=== PATIENT | female | born 1960 | race Caucasian/White ===

== ENCOUNTER 2024-12-03 11:48 | Outpatient (CLI) | payer MEDICARE, MEDICAID, SELFPAY ==
--- NOTE | 2024-12-03 11:00 | DI.RAD_ITS ---
Exam(s) XR STANDING ALIGNMENT EXAM: XR STANDING ALIGNMENT CLINICAL HISTORY: LEFT KNEE PAIN. TECHNIQUE: 2D digital imaging was performed. Standing AP views were performed from the pelvis through the ankles. COMPARISON: DX XR KNEE LT MIN 4V* from 04/16/2021 DX XR KNEE 4V LT* from 05/13/2022 FINDINGS: BONES: No acute fracture is present. No bony destructive lesion is seen. Leg length discrepancy: Mild overall leg length discrepancy 5 millimeters, with the right femoral head projecting superior to the left. JOINTS: Knees: There are end-stage degenerative changes of the left knee. There is severe joint space narrowing and prominent periarticular spurring. There are bony densities medial to the medial malleolus. There is significant lateral subluxation of the tibia with respect to the distal femur and significant varus angulation. There is flattening of the tibial spines. The right knee shows moderate to severe narrowing of the medial femoral tibial joint space, periarticular spurring and mild varus angulation. Ankles: Tibiotalar fusion hardware noted on the right. The left ankle joint space is maintained. The hip joints are suboptimally evaluated due to under penetration due to patient body habitus. There may be mild bilateral hip joint space narrowing. SOFT TISSUE: Normal. IMPRESSION: End-stage degenerative changes of the left knee. Severe degenerative changes of the right knee. Mild leg length discrepancy. DATA REPOSITORY: RADIATION DOSE DELIVERED:
== END 2024-12-03 11:49 | disposition home or self-care (01) ==
LOC: DIORS 11:49
PROVIDERS: Visit Provider Student in an Organized Health Care Education/Training Program
DX: M25.562 Pain in left knee (principal); M17.12 Unilateral primary osteoarthritis, left knee; M21.162 Varus deformity, not elsewhere classified, left knee
CPT/HCPCS: 99204; 77073

== ENCOUNTER 2025-02-21 05:16 | Outpatient (CLI) | payer MEDICARE, MEDICAID, SELFPAY ==
[2025-02-21 10:27] LABS: HCT 45.0 % (36.0-46.0); HGB 14.4 g/dL (11.2-15.7); MCH 28.2 pg (27.0-33.0); MCHC 32.0 % (32.0-36.0); MCV 88 fL (80-95); MPV 11.7 fL (8.0-11.0); Platelet Count 180 10^3/uL (130-400); RBC 5.10 10^6/uL (3.93-5.22); RDW 12.9 % (11.7-14.6); RDW-SD 41.9 fL; WBC 4.72 10^3/uL (4.4-10.8)
[2025-02-21 10:56] LABS: Anion Gap 6.0 mmol/L (3-11); BUN 17 mg/dL (7-18); CO2 31.0 mmol/L (21.0-32.0); Calcium 9.3 mg/dL (8.5-10.1); Chloride 103 mmol/L (98-107); Estimated GFR 97.12 (mL/min/1.73m2); Glucose 100 mg/dL (74-106); Potassium 4.0 mmol/L (3.5-5.1); Sodium 140 mmol/L (136-145)
== END 2025-02-21 05:17 | disposition home or self-care (01) ==
PROVIDERS: PCP Nurse Practitioner Family; Visit Provider Student in an Organized Health Care Education/Training Program
DX: Z01.818 Encounter for other preprocedural examination (principal); M17.12 Unilateral primary osteoarthritis, left knee
CPT/HCPCS: 36415; 80048; 85027; 73700

== ENCOUNTER 2025-02-21 05:28 | Outpatient (CLI) | payer MEDICARE, MEDICAID, SELFPAY ==
--- NOTE | 2025-02-21 07:15 | DI.CT_ITS ---
Exam(s) CT LOWER EXTREMITY LT WO EXAM: CT LOWER EXTREMITY LT WO CLINICAL HISTORY: PAIN,arthritis lt knee,acquired varus deformity,surgical planning. TECHNIQUE: Imaging Protocol: Axial computed tomography images with coronal and sagittal reformatted images were created and reviewed. CONTRAST MATERIAL: Noncontrast - COMPARISON: DX XR KNEE 4V LT* from 05/13/2022 CR XR STANDING ALIGNMENT from 12/03/2024 FINDINGS: There are severe degenerative changes of the femoral tibial joints. There is lateral subluxation of the tibia with respect to the distal femur. There is prominent periarticular spurring. There are bony fragments noted at the posterior medial aspects of the the medial tibia. There is a there are multiple subchondral cysts as well as sclerosis. There is significant varus angulation. There is flattening of the tibial spines and femoral intercondylar notch. The patellofemoral joint also shows severe narrowing and periarticular spurring. A bilobed Bertrand cyst is present which contains several loose bodies. IMPRESSION: Severe degenerative changes of the medial femoral tibial joint with significant deformity of the distal femur and medial tibial plateau but adjacent bony fragments. RADIATION DOSE DELIVERED: 148.05mGy.cm Total DLP DATA REPOSITORY: All CT scans at this facility are submitted to the National Radiology Data Registry (NRDR) Dose Index Registry (DIR) with the [employer] (A[employer]). RADIATION OPTIMIZATION: All CT scans at this facility use at least one of these dose optimization techniques: automated exposure control; mA and/or kV adjustment per patient size (includes targeted exams where dose is matched to clinical indication); or iterative reconstruction.
== END 2025-02-21 05:48 ==
LOC: DI 05:28
PROVIDERS: PCP Nurse Practitioner Family; Visit Provider Student in an Organized Health Care Education/Training Program
DX: M21.169 Varus deformity, not elsewhere classified, unspecified knee (principal); M17.12 Unilateral primary osteoarthritis, left knee
CPT/HCPCS: 73700

== ENCOUNTER 2025-02-26 07:10 | Day surgery (SDC) | payer MEDICARE, MEDICAID, SELFPAY ==
[2025-02-26] VITALS (19 sets, daily range): BP systolic 100–160; BP diastolic 45–88; PULSE 57–78; RESP 9–20; TEMP 36–36.8; O2SAT 96–100; BMI 41.2
--- NOTE | 2025-02-26 07:58 | W.ANESPRE ---
General Info Date of Service Date Performed: 02/26/25 Height: 5 ft 2 in Weight: 102.2 kg Body Mass Index (BMI): 41.2 Surgical Procedure: Operation Date: 02/26/25 09:25 Proposed Procedure Side Surgeon p Knee Total Arthroplasty w/OrthAlign, FB Tibia Revision Left Jono Woods MD Actual Procedure Side Surgeon p Knee Total Arthroplasty w/OrthAlign, FB Tibia Revision Left Jono Woods MD Pre-Op Diagnosis Post-Op Diagnosis Arthritis of left knee Meds Allergies and Home Medications Allergies Allergy/AdvReac Type Severity Reaction Status Date / Time Penicillins Allergy Unknown Unknown Verified 02/26/25 07:35 Home Medication ?Medication ?Instructions ?Recorded tramadol 50 mg tablet 50 mg PO TID PRN 12/03/24 ZYFLAMEND PO DAILY 02/21/25 cholecalciferol (vitamin D3) 125 5,000 unit PO DAILY 02/21/25 mcg (5,000 unit) tablet (Vitamin D3) coQ10 (ubiquinol) 100 mg capsule 100 mg PO DAILY 02/21/25 evening primrose oil 500 mg capsule 500 mg PO DAILY 02/21/25 ketoconazole 2 % topical cream 1 applic topical DAILY PRN 02/21/25 multivitamin with minerals 1 tab PO DAILY 02/21/25 (Hair,Skin and Nails tablet) vitamin E acetate 134 mg (200 134 mg PO DAILY 02/21/25 unit) capsule Current Visit Medications: Current Medications Generic Name Dose Route Start Last Admin Trade Name Freq PRN Reason Stop Dose Admin Acetaminophen 1,000 mg 02/26/25 06:00 Acetaminophen 500 Mg Tab PO 02/26/25 23:59 PREOP [facility] Acetaminophen 1,000 mg 02/26/25 08:30 Acetaminophen 500 Mg Tab PO 03/28/25 08:29 TID [facility] Aspirin 81 mg 02/26/25 08:30 Aspirin E.C. 81 Mg Tabec PO 03/28/25 08:29 BID [facility] Celecoxib 400 mg 02/26/25 06:00 Celecoxib 200 Mg Cap PO 02/26/25 23:59 PREOP [facility]ID Celecoxib 200 mg 02/26/25 08:30 Celecoxib 200 Mg Cap PO 03/28/25 08:29 BID [facility] Dexamethasone 4 mg 02/26/25 08:30 Dexamethasone 4 Mg Tab PO 02/27/25 08:31 DAILY [facility] Docusate Sodium 100 mg 02/26/25 07:08 Docusate Sodium 100 Mg Cap PO 03/28/25 07:07 BID PRN PRN Constipation Gabapentin 300 mg 02/26/25 06:00 Gabapentin 300 Mg Cap PO 02/26/25 23:59 PREOP DAVID Gabapentin 300 mg 02/26/25 20:00 Gabapentin 300 Mg Cap PO 03/28/25 19:59 HS DAVID Hydromorphone HCl 0.5 mg 02/26/25 07:08 Hydromorphone 2 Mg/Ml Syr IVP 03/28/25 07:07 Q2H PRN PRN Ringer's Solution 1,000 mls @ 80 mls/hr 02/26/25 06:00 IV 02/26/25 23:59 INFUSION DAVID Cefazolin Sodium/Dextrose 2 gm in 50 mls @ 100 mls/hr 02/26/25 06:00 Ancef Duplex IVPB 02/26/25 23:59 PREOP DAVID Tranexamic Acid/Sodium Chloride 1,000 mg in 100 mls @ 600 mls/hr 02/26/25 06:00 IVPB 02/26/25 23:59 PREOP DAVID Cefazolin Sodium/Dextrose 1 gm in 50 mls @ 100 mls/hr 02/26/25 08:00 Ancef Duplex IVPB 03/28/25 07:59 Q8H DAVID IV Miscellaneous Supplies 1 each 02/26/25 06:00 Iv Access IV 02/26/25 23:59 DIRECTED DAVID Ondansetron HCl 4 mg 02/26/25 07:08 Ondansetron 4 Mg/2 Ml Vial IVP 03/28/25 07:07 Q6H PRN PRN Nausea Oxycodone HCl 0 mg 02/26/25 07:08 Oxycodone 5 Mg Tab PO 03/28/25 07:07 Q3H PRN PRN Pain Pantoprazole Sodium 40 mg 02/26/25 07:30 Pantoprazole 40 Mg Tabcr PO 03/28/25 07:29 DAILY@0730 DAVID Polyethylene Glycol 17 gm 02/26/25 07:08 Polyethylene Glycol 3350 17 Gm Packet PO 03/28/25 07:07 BID PRN PRN Constipation Sodium Chloride 0 ml 02/26/25 06:00 Normal Saline Flush 10 Ml Syr IV 02/26/25 23:59 PRN PRN Sodium Chloride 0 ml 02/26/25 06:00 Normal Saline 10 Ml Vial IJ 02/26/25 23:59 DIRECTED PRN Sterile Water 0 ml 02/26/25 06:00 Water,Injection,Sterile 10 Ml Vial IJ 02/26/25 23:59 DIRECTED PRN Tranexamic Acid 1,300 mg 02/26/25 07:08 Tranexamic Acid 650 Mg Tab PO 03/28/25 07:07 ONCE PRN postoperative PFSH Active Problems Active Problems: Problem Status Onset Code Acquired varus deformity of knee Acute M21.169 Arthritis of left knee Acute M17.12 Obesity Chronic E66.9 Thyroid nodule Acute E04.1 Heart murmur Acute R01.1 ANDREW (obstructive sleep apnea) Chronic G47.33 Surgical History Surgical History Hx of colonoscopy History of ankle fusion (02/09/22) non-union (Dr. Olguin) History of total shoulder replacement Dr. Colin Tobacco Smoking/Tobacco Use Status: Never Passive smoking exposure: Yes Alcohol Alcohol Intake: former Substance Use Substance use: Daily Substance use type: marijuana Details: Last used Marijuana on 02/24/25, she took a small hit per patient. Vital Signs and Lab Results Vital Signs Most Recent Vital Signs in EMR: Most Recent Vital Signs Temp Pulse Resp BP Pulse Ox 36.2 C L 73 16 160/80 H 99 02/26/25 07:37 02/26/25 07:37 02/26/25 07:37 02/26/25 07:37 02/26/25 07:37 Lab Results Complete Blood Count: WBC, (4.4-10.8) 4.72 10^3/uL 02/21/25, 10:00 RBC, (3.93-5.22) 5.10 10^6/uL 02/21/25, 10:00 Hgb, (11.2-15.7) 14.4 g/dL 02/21/25, 10:00 Hct, (36.0-46.0) 45.0 % 02/21/25, 10:00 Plt Count, (130-400) 180 10^3/uL 02/21/25, 10:00 Complete Metabolic Panel: Sodium, (136-145) 140 mmol/L 02/21/25, 10:00 Potassium, (3.5-5.1) 4.0 mmol/L 02/21/25, 10:00 Chloride, (98-107) 103 mmol/L 02/21/25, 10:00 Carbon Dioxide, (21.0-32.0) 31.0 mmol/L 02/21/25, 10:00 BUN, (7-18) 17 mg/dL 02/21/25, 10:00 Creatinine, (0.55-1.02) 0.7 mg/dL 02/21/25, 10:00 Est GFR (CKD-EPI 2020), (mL/min/1.73m2) 97.12 02/21/25, 10:00 Calcium, (8.5-10.1) 9.3 mg/dL 02/21/25, 10:00 Glucose, (74-106) 100 mg/dL 02/21/25, 10:00 Anesthesia Assessment and Plan Anesthesia History Personal History: No History of Anesthesia Complications Family History: No Family History of Anesthesia Complications Exercise Tolerance Exercise Tolerance: Metabolic Equivalents>4 Cardiac & Pulmonary Exam Cardiac Exam: Heart Murmur Present Pulmonary Exam: Clear Bilateral Breath Sounds Implantable Cardiac Device Does patient have a Pacemaker or an ICD?: No Airway Exam Known Difficult Airway: No Mallampati Class: 2 Mouth Opening: Normal (> 3cm) Thyromental Distance: Greater than 3 cm Neck Range of Motion: Full ROM Neck Circumference: Normal Teeth Condition: Normal Dentition ASA Classification ASA Score: ASA 3 Emergency Case?: No NPO Status NPO Status: NPO Clears >2 hours, Solids >8 hours Anesthesia Plan Resuscitation Status: Full Code Anesthesia Technique: Spinal Anesthesia Airway Planned: Natural Airway Pain Management: Surgeon and patient request nerve block Monitors Used: Standard Monitors
[2025-02-26] MEDS: Lactated Ringers 1,000 ML 80 ML IV (08:03)
[2025-02-26] MEDS: Gabapentin 300 MG CAP PO (08:03)
[2025-02-26] MEDS: Acetaminophen 500 MG TAB 1000 MG PO ×2 (08:04→15:00)
[2025-02-26] MEDS: Celecoxib 200 MG CAP 400 MG PO (08:04)
[2025-02-26] MEDS: ceFAZolin 2 GM/50 ML BAG IVPB (09:01)
--- NOTE | 2025-02-26 09:09 | W.PM.OP ---
Operative Note Operative Note PRE-OP DIAGNOSIS: Left Knee Arthritis with Significant Tibia Varus Deformity POST-OP DIAGNOSIS: same PROCEDURE: Left Total Knee Arthroplasty with Intraoperative Navigation (increased complexity with significant tibia varus deformity) SURGEON: Jono Woods PARTS CASTING MACHINE OPERATOR: Lexy Pedraza ANESTHESIA TYPE: Spinal Refer to Anesthesia Record ESTIMATED BLOOD LOSS: 150 PATHOLOGY: none sent COMPLICATIONS: None Patient was transported to: PACU Patient's condition: stable Implants: 1. Depuy Attune Cemented Cruciate Retaining Femoral Component, Size 6 2. Depuy Attune Cemented, Revision Fixed Bearing Tibial Component, Size 4 with [id number] Cemented Stem 3. Depuy Attune 6x10 CR, FB Poly 4. Depuy Attune Patellar Component, Size 38 Indications: I have seen Diana in clinic for symptoms of knee arthritis, confirmed with radiographic findings. She has exhausted nonoperative methods and was having significant limitations in daily function and desired better function and less pain. I discussed the technical details of a knee replacement. I explained the risks of the procedure to include, but not limited to, bleeding, infection, pain, stiffness, fracture, damage to nerves and vessels, damage to muscles and tendons, loosening, need for repeat procedure, blood clot and cardiopulmonary demise. I was honest with Diana that this case has increased complexity given the severity of her varus deformity and the deformity of the medial tibia. CT scan was utilized to better understand the deformity and the loose fragments. All of her questions were answered. Diana elected to proceed. Findings: There was significant signs of arthritis throughout the knee with complete loss of cartilage throughout all 3 compartments, large subchondral cyst, and large osteophytes as well as loose bony fragments, particular posteriorly. Procedure Description: Diana was greeted in the preoperative holding area where the correct side was identified and marked. The consent was reviewed with the patient and signed. The history and physical was updated. All questions were answered. Preoperative medications were administered: Acetaminophen 1000mg, Celebrex 400mg, Gabapentin 300mg, and Oxycontin 10mg. An adductor canal block was then administered by the anesthesia team in the DSU. Diana was taken back to the operating room. A spinal anesthestic was then administered. The patient was placed into the supine position on the operating room table. A nonsterile tourniquet was placed high onto the leg but only used for cementing. Posts were placed for positioning during the procedure. All bony prominences were well padded. Prophylactic antibiotics in the form of Cefazolin were administered. 1g of Tranxemic Acid was given intravenously within 30 minutes of incision. The left leg was then prepped with Chloraprep and draped in a standard fashion with impervious stockinette and extremity drape with Iodine impregnated skin protection. A timeout to confirm correct identity, side and site, procedure, allergies, anesthesia, and medical concerns was performed. With the knee in some flexion, a midline incision was made overlying the knee. Full thickness skin flaps were raised once the extensor mechanism was encountered. These were raised medially and laterally. Any bleeding was controlled with electrocautery. Once the extensor mechanism was fully exposed, a medial parapatellar arthrotomy was performed in a flexed position. All bleeding from the arthrotomy and the geniculate arteries was coagulated. A medial subperiosteal peel was performed with electrocautery to the midcoronal plane. Due to the significant varus deformity the entire medial tibial plateau was exposed. The fat pad was removed while keeping the patellar tendon protected. The anterior distal femur synovium was removed for later visualization. The ACL and PCL were resected and the anterior horn of the lateral meniscus was transected. The knee was then flexed with the patella everted. Large osteophytes from the tibia were removed. Large osteophytes from the femur were removed. There is extensive synovitis as well which was also resected. A single starting pin was then placed 1cm anterior to the PCL insertion and the notch in the direction of the femoral head. The OrthoAlign device was applied over the pin. It was oriented to be in line with the epicondylar axis and the trochlear groove. It was then pinned into place. The navigation computer was then turned on and calibrated. The distal femur cut was set at 0.5 degrees varus and 3.5 degrees flexion. The distal femur cutting guide then was positioned for a 8mm cut due to the significant arthritis and loss of cartilage throughout medial and lateral femur. The distal femur was cut with an oscillating saw while protecting the soft tissues. The tibia was then addressed. The OrthoAlign device was placed over the tibial tubercle and medial tibia and secured into position. Once again, OrthoAlign was calibrated and then set for a 2.5 degrees varus cut and 6 degrees of posterior slope. With this locked into position, the cut thickness stylus was used to assess cut thickness. The medial side, most involved side, was set for a 0mm cut off of the far posterior medial aspect of the medial tibia. This was then held in position and pinned into place with 2 additional pins and a cross pin for stability. The medial and lateral collateral ligaments were protected and the cut was performed. I then further dissected the medial aspect of the knee removing multiple loose bodies in the medial soft tissues and osteophytes around the posterior corner of the medial tibia. A large free posterior medial tibial fragment was encountered which was seen previously on the CT scan. Utilizing a [place] elevator and osteotomes I Corail this off of the posterior tibia and released capsular and ligamentous attachments. Slowly this piece was removed from the posterior aspect of the knee, both in flexion and extension. It was peeled off the MCL and the posterior capsular attachments until was fully free. A gap assessment tool was placed and showed that the gap was appropriate with minimal asymmetry. The guide and OrthoAlign was removed. The Orthoalign gap balancing device was then placed in extension. This was used to ensure that the ligaments were properly balanced with up to 2 to 3 mm laxity laterally compared medially. The extension gap was measured as 22mm. The knee was then brought into 90 degrees of flexion and the ligament electromedical service engineer was once again placed. Under the same amount of force the flexion gap was measured. The Attune specific jig was placed and the flexion gap was made to match the extension gap. The distal femur was then sized. The anterior stylus was placed onto the lateral ridge of the anterior femur. This indicated a size 6 femur. The 4-in-1 cutting guide was the placed. The posterior medial femur cut was evaluated and appeared of good thickness. The spacer block was inserted underneath the cutting guide and stability was confirmed in 90 degrees of flexion. An belen wing was used to confirm appropriate position of the anterior cut to avoid notching. This cutting guide was ensured to be flush on the cut surface and then pinned into place with headed pins. While protecting the soft tissues, quad tendon, and collateral ligaments, the anterior and posterior cuts were performed with a saw. The central two pins were removed and the posterior and anterior chamfers were cut next. The notch-cutting guide was placed. This was pinned to lateralize the femoral component as much as possible while keeping it flush on the cut surface. This was then pinned into position. A small oscillating saw was used to make the notch cut. A rasp smoothed the cut surfaces. A trial femoral component was then inserted, impacted down to the cut surfaces, and the lug holes were drilled. A provisional trial tibial component was placed and the knee was brought through range of motion. The polyethylene was trialed until there was good flexion and extension with excellent stability to the medial and lateral collaterals. The patella was tracking without thumbs. The tibial cut surface was fully exposed. The medial and lateral menisci were removed. The tibia was then sized as a 4. The tibia had been previously marked during trialing to correspond to the center of the tibial component to help with rotation. The trial was aligned to this addie, approximately rotated to the medial 1/3rd of the tibial tubercle. The trial was pinned into place. The revision tibial tray was then prepped by reaming for a 14 mm stem as well as a proximal opening reamer. The keel was also punched. The knee was then brought into extension and the patella was measured as 26mm. Using the patellar clamp and cut guide, this was resected to a flat surface with at least 13mm of thickness remaining. The size 38mm patella fit the best. This was oriented and then clamped into position. The lugs were drilled. The trial components were removed. The final components, except for the polyethylene were opened on the back table. The periosteal and capsular tissues, especially posteriorly, around the knee were then systematically injected with a periarticular cocktail consisting of 200mg of Ropivacaine, 0.5mg of Epinephrine, and 30mg of Ketorolac, diluted to 100cc. The knee was thoroughly irrigated with a pulse lavage and dried. On the back table, with the implants opened, the cement was mixed. 2 batches of medium viscosity cement were prepared with vacuum assistance. After the cement was ready a small amount was placed on to the back side of the tibial component at the keel. A small amount was placed onto the posterior flange of the femur. Cement was manual pressurized and impregnated into the cut surface of the tibia. The tibial component was then inserted into the cut surface and impacted into position. Excess cement was removed and the component was reimpacted. Again, excess cement was removed and our attention was then turned to the femur. The femoral cut surface was once again dried and cement was manually impacted into the cut surface. The femoral component was lined with the lug holes and impacted. Excess cement was removed. It was ensured to be down against the cut surface. The trial polyethylene was then inserted and the leg was brought out into full extension for the duration of the cement curing process, approximately 18min. Cement was lastly manually impacted into the cut surface of the patella and the patellar button was clamped into position and held. During this process attention was turned to the gutters of the knee and for all interfaces for any excess cement. The knee was then thoroughly irrigated with Surgiphor Betadine solution. It was allowed to sit in the knee for 3 minutes before being irrigated out with saline. After the cement had finally cured, approximately 18min, the clamp was removed from the patella and the knee was taken through range of motion. A size 10mm polyethylene component provided the best range of motion and stability with less than 2mm gapping with medial and lateral stress and full extension without significant hyperextension. The patella was tracking with a no-thumbs technique. The trial poly was removed and once again the knee was checked for any loose, excess, or errant cement. The poly component was then inserted into position after cleaning and drying the tibial tray. The capsule was then reapproximated with a No. 1 Vicryl at multiple locations. The capsule was finally closed with a No. 2 Stratafix, barbed suture. The tourniquet was then released and the arthrotomy appeared watertight without significant bleeding. The second dosing of 1g TXA was started. Deep tissues were then reapproximated with 0 Vicryl and 2-0 Vicryl. The skin was closed with a running 3-0 Monocryl in a subcuticular fashion. This was reinforced with skin glue. A Mepilex silver dressing was applied along with a [id number] GASTON wrap. A CryoCuff was applied. Diana was transferred to the hospital bed without difficulty an suffering no apparent complication. She has a good prognosis. Physical therapy will start today and without restrictions, weight-bearing as tolerated. Aspirin 81mg BID will be used for DVT prophylaxis. Date of Procedure: 02/26/25
[2025-02-26] MEDS: TRANEXAMIC ACID/SOD. CHL. 1,000 MG/100 ML BAG 600 MG IVPB (09:15)
[2025-02-26] MEDS: Ketorolac 30 MG/ML VIAL (09:36)
[2025-02-26] MEDS: EPINEPHrine 1 MG/ML AMP pres-free (09:36)
[2025-02-26] MEDS: ROPIvacaine 0.2% 200 MG/100 ML BAG (09:37)
--- NOTE | 2025-02-26 09:55 | W.ANESNERVE ---
Nerve Block Single Injection Procedure Date and Time Date Performed: 02/26/25 Procedure Start: 08:46 Location Where Procedure Performed Procedure Location: Day Surgery Unit Reason Performed: Postoperative Analgesia Requesting Provider: Jono Woods Timeout Performed Timeout Performed: Yes Monitoring Used ECG, Blood Pressure, SpO2 and See EMR for corresponding vital signs Sterility Sterility: Hand Hygiene, Surgical Cap, Surgical Mask, Sterile Gloves and Chlorhexidine Sedation Given During Procedure Sedation Given (Indicate Dose Given): Versed IV Dose:: 2mg Patient Mental Status Patient Mental Status: Sedate with meaningful communication Nerve Block 1st Nerve Block: Laterality: Left Block Type: Adductor Canal Ultrasound Image Saved?: Yes Needle / Catheter Used: 100mm SonoPlex II Local Anesthetic Bolus (Indicate Dose Given): Lidocaine used for local infiltration of skin, Injected in 3-5ml increments after negative blood aspiration, Bupivacaine 0.25% Dose:: 10mL and Exparel Dose:: 10mL Additives (Indicate Dose Given): None Ultrasound: Sterile probe cover and gel used Nerve Stimulator: Supplement to Ultrasound use and No twitch or parasthesia noted < 0.5 mA (0.8) Paresthesia: None Procedure Tolerated: No Complications Procedure Outcome: Successful Performed By: Alina Dupont
--- NOTE | 2025-02-26 13:02 | W.PM.DSUDISC ---
Date of service: 02/26/25 Discharge Plan Disposition Patient Disposition: Home Discharge Details Reason For Visit: Left Knee Arthritis Attending Provider: Jono Woods Primary Care Provider: Michelle Hill Home Meds and New Rx's Prescriptions: New celecoxib 200 mg capsule 200 mg PO BID PRN (Reason: pain) Qty: 60 1RF aspirin 81 mg tablet,delayed release (DR/EC) 81 mg PO BID Qty: 60 0RF acetaminophen 500 mg tablet 1,000 mg PO Q8H PRN (Reason: pain) Qty: 90 3RF pantoprazole 40 mg tablet,delayed release (DR/EC) 40 mg PO DAILY Qty: 30 0RF dexamethasone 4 mg tablet 4 mg PO DAILY Qty: 2 0RF Rx Instructions: Starting Post-Operative Day #1 (Day after surgery) docusate sodium [Colace] 100 mg capsule 100 mg PO BID PRNQty: 10 0RF gabapentin 300 mg capsule 300 mg PO QHS Qty: 14 0RF oxycodone 5 mg tablet 5 mg PO Q4H PRNQty: 18 0RF Continued ZYFLAMEND PO DAILY Hair,Skin and Nails Tablet 1 tab PO DAILY ketoconazole 2 % cream 1 applic topical DAILY PRN coQ10 (ubiquinol) 100 mg capsule 100 mg PO DAILY cholecalciferol (vitamin D3) [Vitamin D3] 125 mcg (5,000 unit) tablet 5,000 unit PO DAILY vitamin E acetate 134 mg (200 unit) capsule 134 mg PO DAILY evening primrose oil 500 mg capsule 500 mg PO DAILY Rx Instructions: give with meal/snack Discontinued tramadol 50 mg tablet 50 mg PO TID PRN Discharge Instructions Additional Instructions: Total Knee Discharge Instructions Activity: The most important activity is to walk and to work on gentle motion (both flexion and extension). You should try to take short walks a few times a day. It is important that when resting you work on keeping the knee straight. Avoid putting a pillow behind the knee as this will encourage flexion. Work on range of motion exercises as provided by Physical Therapy. - Start outpatient physical therapy within 2 weeks. - You should wear the DON hose on both legs for 2 weeks. You may remove these at night. You may also use any compression sock in place of the DON hose. - Utilize [employer] to review exercises, see videos on exercises and obtain basic information pertaining to your surgery and your recovery. Dressing: Remove the Shawn wrap by 2 days after your surgery and put on the DON stocking given to you from the hospital. Keep the surgical dressing (underneath the SHAWN wrap) in place for at least one week. After the first week it may be removed and replaced with light gauze and tape or nothing. The wound and dressing may get wet after 3 days but avoid soaking the dressing or otherwise it will need to be changed. Many people prefer covering the dressing with cling wrap (saran wrap) to minimize it from getting soaked. If it gets wet, just pat dry. If it starts to peel off then it will need to be changed. Medications: - You should take Tylenol and anti-inflammatory Celebrex as your primary pain control medications. If the Celebrex is too expensive or not covered, please call the office for another alternative (Advil/Ibuprofen or Naproxen/Aleve) - You have been prescribed a stronger pain medication Oxycodone for breakthrough pain, take as needed as prescribed. - You have also been prescribed a stomach acid reduction agent Pantoprozole to help reduce stomach acid and reflux. - You have been prescribed Gabapentin to take at night for restlessness and nerve pain. - You will be taking Aspirin 81mg twice a day for DVT prevention unless instructed otherwise. - You have also been prescribed Decadron to take to control post-operative nausea and pain. You will start this tomorrow. - If you have constipation you should take Colace or Miralax (both [id number]). It takes most people 3-4 days to have a bowel movement. Follow-up: Tuesday03/11/25 at 1:30 p.m. If you have any acute concerns or questions, please do not hesitate to contact the office at [phone]. You may contact Dr. Woods with any questions after hours through the hospital at [phone] or on his cell phone at [phone]. Stand Alone Forms: Anesthesia Discharge Inst., Juan.Nerve Block Instructions, Jaylene Samuel ([facility]) Referrals: Jono Woods MD [ [facility] STAFF PHYSICIAN, Orthopaedic Surgical] Equipment/Supplies: Walker Activity:: Activity as Tolerated Remove Dressings/Wound Care:: Do Not Remove Shower/Bathe:: Cover Diet:: As Tolerated Discharge Orders Discharge Orders: Discharge Order (Routine); Ordered 02/26/25 Ordered By: Jono Woods
[2025-02-26] MEDS: oxyCODONE 5 MG TAB PO (13:15)
--- NOTE | 2025-02-26 13:15 | W.ANESPOSTOP ---
Postoperative Evaluation Date, Time and Location Date Performed: 02/26/25 Time Performed: 13:00 Patient Location: Day Surgery Unit Vital Signs Most Recent Imported Vital Signs: Most Recent Vital Signs Temp Pulse Resp BP Pulse Ox 36.0 C L 65 14 111/64 97 02/26/25 12:44 02/26/25 12:44 02/26/25 12:44 02/26/25 12:44 02/26/25 12:44 Pain Score Most Recent Pain Score: Most Recent Pain Score Pain Level 0 02/26/25 12:44 Assessment Mental Status: Awake (Alert & Oriented to Patient Baseline) Airway and Respiratory Function: Patent airway with normal (patient baseline) respiratory exam Cardiovascular Function: Hemodynamically Stable Hydration Status: Adequately Hydrated Nausea & Vomiting: No Nausea or Vomiting Pain: Pt. Denies Any Pain Peripheral Nerve Block: Regional nerve block not resolved at time of post operative discharge
--- NOTE | 2025-02-26 15:15 | PT.INIE ---
PT Notes Visit Reasons: Left Knee Arthritis Physical Therapy Day Surgery Initial Evaluation Date: 02/26/2025 Referring Doctor: Dr Woods/ Lexy Pedraza PT Orders: PT CONSULT: s/p Ortho Surgery Precautions: WBAT left LE Patient Profile/Admitting Diagnosis: Patient is a 64-year-old female who presents status post elective left TKA by Dr. Woods under spinal anesthesia on 02/26/2025. 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 Olguin)History of total shoulder replacement Dr. Colin Social History/Home Situation: Patient resides alone 3 steps with 2 rails then 2 platform steps to enter home. She is independent without assistive device for ambulation. Independent ADLs and home management, drives, Equipment Owned/DME: Four-wheel walker, tub bench, lift chair Subjective: Patient reports she feels like the medication is making her very emotional. Objective: [] General Observation: Female presented semireclined on stretcher with Cryo/Cuff to left knee. Patient slightly weepy Mental Status: Alert and oriented x 4, cooperative, able to follow instructions, agreeable to participate Pain: left knee 3/10 ROM: [] Right Upper Extremity: WNL Left Upper Extremity: WNL Right Lower Extremity: WNL Left Lower Extremity: hip and ankle WNL knee 0-95 degrees Strength: [] Right Upper Extremity:5/5 Left Upper Extremity: 5/5 Right Lower Extremity: 5/5 Left Lower Extremity: Hip flexion: /5; hip abduction: /5; hip extension: /5; knee extension: /5; knee flexion: /5 ankle DF: /5 ; ankle PF: /5 Sensation: intact Bed Mobility/Transfers: [] Supine to sit SBA Sit to stand SBA and cues to push up sensitive to loud Stand to sit SBA cues to reach back Bed to chair with FWW SBA Gait: Ambulated with FWW SBA 150 feet cues for FWW management to keep further away from body. Patient demonstrates impaired knee flexion during swing phase on left. Intermittent cues to increase step length stairs: 3 4 steps? and 2 6 steps with rails SBA with continuous cues for sequencing step to pattern Balance: [] Static Sitting: Normal Dynamic Sitting: Good Static Standing: Normal Dynamic Standing: Good Special Tests: [] Mobility Limitations Standardized Measure [] [facility] AM-PAC 6 clicks Basic Mobility Inpatient Short Form: [] Raw Score: 23 CMS Score: 11.20% Informed Consent/Education: Patient instructed in purpose of PT consult. Treatment : 79026 Packet containing TKA exercise protocol has been given to patient. Education and training on initial set of 10 reps exercises that can be done at home have been completed with patient. 13911: Functional mobility training with four-wheel walker contact-guard assist and cues for walker management including brakes. Ambulation with four-wheel walker contact-guard assist small spaces. Simulated car transfer With min assist for lower extremity management Assessment: Patient Is a 64-year-old female who Presents with clinical signs and symptoms consistent with current/admitting diagnoses that have resulted to mobility limitations, gait instability, generalized weakness, and impairment of motor control as demonstrated by the following impairment level findings: 1. Decreased strength to left knee major muscle groups 2. Impaired standing balance 3. Limitation of joint range of motion in left knee 4. pain left knee 5. Impaired functional activity tolerance Impairments are contributing to the following functional limitations: 1. Inability to safely ambulate without assistive device 2. Increase completion time for mobility ADL performance 3. Increased fall risk Patient is assessed as a low complexity based on the following: History: 64-year-old female with impairment level findings, functional limitations, and past medical history as indicated above Examination: Demonstrable impairment in strength, balance, and mobility level with underlying impairments and functional limitations as documented above Presentation: stable/ evolving Decision Making: moderate Goals: N/A. PT evaluation and 1-2 treatment sessions only for functional mobility training using recommended AD and for HEP instruction. Plan of Care/Treatment Plan: N/A. PT evaluation and 1-2 treatment session only for functional mobility training using recommended AD and for HEP instruction. DISCHARGE RECOMMENDATIONS: Home with HEP and Outpatient PT as scheduled TREATMENT CODE/TIME: 08538, [id number], [id number] Thank you for the opportunity to participate in the care of this patient. Lisette Franklin PT [facility]
== END 2025-02-26 17:24 | disposition home or self-care (01) ==
PROVIDERS: PCP Nurse Practitioner Family; Visit Provider Student in an Organized Health Care Education/Training Program
PROC: (CPT 27447; principal; 2025-02-26 09:15)
DX: M17.12 Unilateral primary osteoarthritis, left knee (principal); M21.162 Varus deformity, not elsewhere classified, left knee
CPT/HCPCS: 20985; 27447; 64447; 97110; 97161; 97530; C1776; J0166; J0665; J0666; J0690; J1596; J1885; J2003; J2250; J2371; J2401; J2405; J2704; J2795

== ENCOUNTER 2025-03-11 13:45 | Outpatient (CLI) | payer MEDICARE, MEDICAID, SELFPAY ==
--- NOTE | 2025-03-11 13:42 | DI.RAD_ITS ---
Exam(s) XR KNEE LT 1V XR STANDING ALIGNMENT EXAM: XR STANDING ALIGNMENT and XR knee LT 1 V CLINICAL HISTORY: 1ST POST OP S/P L TKA. TECHNIQUE: 2D digital imaging was performed. Five images were obtained. COMPARISON: DX XR KNEE LT MIN 4V* from 04/16/2021 DX XR KNEE 4V LT* from 05/13/2022 CR XR STANDING ALIGNMENT from 12/03/2024 FINDINGS: BONES: There is joint space narrowing in the hips bilaterally. Since the prior examination, there has been interval placement of a left total knee arthroplasty. The orthopedic hardware is in good position. There are no suspicious lucencies around the orthopedic hardware. In the right knee, moderate degenerative changes are present characterized by joint space narrowing and osteophytes. The findings are most marked in the medial femoral tibial joint. There is a right ankle fusion. The left ankle is unremarkable.There is no significant leg length discrepancy. SOFT TISSUE: Normal. IMPRESSION: 1. Interval placement of a left total knee arthroplasty. 2. Osteoarthritis of the both hips and the right knee. DATA REPOSITORY: RADIATION DOSE DELIVERED:
== END 2025-03-11 13:46 | disposition home or self-care (01) ==
LOC: DIORS 03-12 08:53
PROVIDERS: PCP Nurse Practitioner Family; Referring Provider Nurse Practitioner Family; Visit Provider Student in an Organized Health Care Education/Training Program
DX: Z47.1 Aftercare following joint replacement surgery (principal); Z96.652 Presence of left artificial knee joint
CPT/HCPCS: 99024; 73560; 77073

== ENCOUNTER → 2025-04-11 13:18 | Outpatient (BNVA) | payer MEDICARE, MEDICAID, SELFPAY | PROVIDERS: PCP Nurse Practitioner Family; Referring Provider Nurse Practitioner Family; Visit Provider Student in an Organized Health Care Education/Training Program | DX: Z47.1 Aftercare following joint replacement surgery (principal); Z96.652 Presence of left artificial knee joint | CPT/HCPCS: 99024 ==